=== PATIENT | female | born 1985 | race American Indian/Alaskan Native ===

== ENCOUNTER 2018-05-07 12:30 | Emergency (ER) | payer SELFPAY ==
[2018-05-07 14:32] LABS: Basophils % (Auto) 0.4 % (0.0-1.8); Eosinophils % (Auto) 0.5 % (0.0-4.3); Hematocrit 34.9 % (30.3-42.9); Hemoglobin 11.1 gm/dl (10.1-14.3); Mean Corpuscular HGB Conc 32 % (30-34); Monocytes # (Auto) 0.6 K/mm3 (0.0-0.8); Monocytes % (Auto) 8.6 % (0.0-7.3); Platelet Count 271 K/mm3 (140-440); Red Blood Count 5.25 M/mm3 (3.65-5.03); Red Cell Distribution Width 16.1 % (13.2-15.2)
[2018-05-07 14:33] LABS: Mean Corpuscular Hemoglobin 21 pg (28-32); Mean Corpuscular Volume 66 fl (79-97)
[2018-05-07 14:37] LABS: BUN/Creatinine Ratio 13; Blood Urea Nitrogen 9 mg/dL (7-17); Calcium 8.9 mg/dL (8.4-10.2); Hemolysis Index 3
[2018-05-07 15:11] LABS: Bilirubin,Urine NEG (Negative); Blood,Urine NEG (Negative); Color,Urine Yellow (Yellow); Protein,Urine <15 mg/dL mg/dL (Negative); Urobilinogen,Urine < 2.0 mg/dL (<2.0)
[2018-05-07] MEDS ORDERED: NACL 0.9% 1000 ML 1,000 ML IV ONE (16:35)
[2018-05-07] MEDS ORDERED: HumuLIN R IV ONE (17:08)
--- NOTE | 2018-05-07 17:23 | Emergency Department Report ---
HPI - General Chief Complaint: Hyperglycemia Time Seen by Provider: 05/07/18 16:34 - HPI HPI: Room 8 The patient is a 33-year-old female presenting with chief complaint of vaginal discharge and hyperglycemia. The patient states she's had a milky vaginal discharge for approximately one week in addition to vaginal itching and discomfort. The patient states this happens when she normally gets a yeast infection when her blood sugars are uncontrolled. Location: [See above] Duration: One week Quality: Vaginal discharge Severity: moderate Modifying factors: [see above] Context: [see above] Mode of transportation: [not driving] ED Past Medical Hx - Past Medical History Hx Hypertension: Yes Hx Diabetes: Yes - Surgical History Additional Surgical History: BREAST REDUCTION - Family History Family history: no significant - Social History Smoking Status: Never Smoker Substance Use Type: None - Medications Home Medications: Home Medications Medication Instructions Recorded Confirmed Last Taken Type Fluconazole [Diflucan TAB] 150 mg PO ONCE #1 tablet 05/07/18 Unknown Rx Metformin HCl [Glucophage] 1,000 mg PO BID #90 tablet 05/07/18 Unknown Rx Sulfamethoxazole/Trimethoprim 1 each PO BID #6 tablet 05/07/18 Unknown Rx [Bactrim DS TAB] ED Review of Systems ROS: Stated complaint: ECZEMA Other details as noted in HPI Constitutional: denies: fever Eyes: denies: eye pain ENT: denies: throat pain Respiratory: no symptoms reported Cardiovascular: denies: chest pain Gastrointestinal: denies: abdominal pain Genitourinary: frequency, discharge Musculoskeletal: denies: back pain Neurological: denies: headache Physical Exam - Physical Exam Vital Signs: Vital Signs 05/07/18 13:09 Temperature 98.7 F Pulse Rate 86 Respiratory 18 Rate Blood Pressure 160/99 O2 Sat by Pulse 100 Oximetry Physical Exam: GENERAL: The patient is well-developed well-nourished female lying on stretcher not appearing to be in acute distress. [] HEENT: Normocephalic. Atraumatic. Extraocular motions are intact. Patient has moist mucous membranes. NECK: Supple. Trachea midline CHEST/LUNGS: Clear to auscultation. There is no respiratory distress noted. HEART/CARDIOVASCULAR: Regular. There is no tachycardia. There is no gallop rub or murmur. ABDOMEN: Abdomen is soft, nontender. Patient has normal bowel sounds. There is no abdominal distention. SKIN: There is no rash. There is no edema. There is no diaphoresis. NEURO: The patient is awake, alert, and oriented. The patient is cooperative. The patient has normal speech MUSCULOSKELETAL: There is no evidence of acute injury. PELVIC: Scant dry white vaginal discharge present. ED Course Vital Signs 05/07/18 13:09 Temperature 98.7 F Pulse Rate 86 Respiratory 18 Rate Blood Pressure 160/99 O2 Sat by Pulse 100 Oximetry ED Medical Decision Making - Lab Data Result diagrams: 05/07/18 13:48 05/07/18 13:48 Laboratory Tests 05/07/18 05/07/18 05/07/18 13:05 13:48 13:48 WBC 7.0 RBC 5.25 H Hgb 11.1 Hct 34.9 MCV 66 L MCH 21 L MCHC 32 RDW 16.1 H Plt Count 271 Lymph % (Auto) 29.0 [place] % (Auto) 8.6 H Eos % (Auto) 0.5 Baso % (Auto) 0.4 Lymph # 2.0 [place] # 0.6 Eos # 0.0 Baso # 0.0 Seg Neutrophils % 61.5 Seg Neutrophils # 4.3 VBG pH Sodium 130 L Potassium 4.3 Chloride 93.1 L Carbon Dioxide 24 Anion Gap 17 BUN 9 Creatinine 0.7 Estimated GFR > 60 BUN/Creatinine Ratio 13 Glucose 513 H* POC Glucose 453 H Calcium 8.9 Urine Color Urine Turbidity Urine pH Ur Specific [place] Urine Protein Urine Glucose (UA) Urine Ketones Urine Blood Urine Nitrite Urine Bilirubin Urine Urobilinogen Ur Leukocyte Esterase Urine WBC (Auto) Urine RBC (Auto) U Epithel Cells (Auto) 05/07/18 05/07/18 05/07/18 13:48 14:33 17:05 WBC RBC Hgb Hct MCV MCH MCHC RDW Plt Count Lymph % (Auto) [place] % (Auto) Eos % (Auto) Baso % (Auto) Lymph # [place] # Eos # Baso # Seg Neutrophils % Seg Neutrophils # VBG pH 7.327 Sodium Potassium Chloride Carbon Dioxide Anion Gap BUN Creatinine Estimated GFR BUN/Creatinine Ratio Glucose POC Glucose 380 H Calcium Urine Color Yellow Urine Turbidity Hazy Urine pH 6.0 Ur Specific [place] 1.031 H Urine Protein <15 mg/dl Urine Glucose (UA) >=500 Urine Ketones Neg Urine Blood Neg Urine Nitrite Neg Urine Bilirubin Neg Urine Urobilinogen < 2.0 Ur Leukocyte Esterase Sm Urine WBC (Auto) 8.0 H Urine RBC (Auto) 4.0 U Epithel Cells (Auto) 3.0 Wet prep-less than 20% clue cells, no yeast or Trichomonas Laboratory Tests 05/07/18 05/07/18 05/07/18 13:05 13:48 13:48 WBC 7.0 RBC 5.25 H Hgb 11.1 Hct 34.9 MCV 66 L MCH 21 L MCHC 32 RDW 16.1 H Plt Count 271 Lymph % (Auto) 29.0 [place] % (Auto) 8.6 H Eos % (Auto) 0.5 Baso % (Auto) 0.4 Lymph # 2.0 [place] # 0.6 Eos # 0.0 Baso # 0.0 Seg Neutrophils % 61.5 Seg Neutrophils # 4.3 VBG pH Sodium 130 L Potassium 4.3 Chloride 93.1 L Carbon Dioxide 24 Anion Gap 17 BUN 9 Creatinine 0.7 Estimated GFR > 60 BUN/Creatinine Ratio 13 Glucose 513 H* POC Glucose 453 H Calcium 8.9 Urine Color Urine Turbidity Urine pH Ur Specific [place] Urine Protein Urine Glucose (UA) Urine Ketones Urine Blood Urine Nitrite Urine Bilirubin Urine Urobilinogen Ur Leukocyte Esterase Urine WBC (Auto) Urine RBC (Auto) U Epithel Cells (Auto) 05/07/18 05/07/18 05/07/18 13:48 14:33 17:05 WBC RBC Hgb Hct MCV MCH MCHC RDW Plt Count Lymph % (Auto) [place] % (Auto) Eos % (Auto) Baso % (Auto) Lymph # [place] # Eos # Baso # Seg Neutrophils % Seg Neutrophils # VBG pH 7.327 Sodium Potassium Chloride Carbon Dioxide Anion Gap BUN Creatinine Estimated GFR BUN/Creatinine Ratio Glucose POC Glucose 380 H Calcium Urine Color Yellow Urine Turbidity Hazy Urine pH 6.0 Ur Specific [place] 1.031 H Urine Protein <15 mg/dl Urine Glucose (UA) >=500 Urine Ketones Neg Urine Blood Neg Urine Nitrite Neg Urine Bilirubin Neg Urine Urobilinogen < 2.0 Ur Leukocyte Esterase Sm Urine WBC (Auto) 8.0 H Urine RBC (Auto) 4.0 U Epithel Cells (Auto) 3.0 05/07/18 18:27 WBC RBC Hgb Hct MCV MCH MCHC RDW Plt Count Lymph % (Auto) [place] % (Auto) Eos % (Auto) Baso % (Auto) Lymph # [place] # Eos # Baso # Seg Neutrophils % Seg Neutrophils # VBG pH Sodium Potassium Chloride Carbon Dioxide Anion Gap BUN Creatinine Estimated GFR BUN/Creatinine Ratio Glucose POC Glucose 252 H Calcium Urine Color Urine Turbidity Urine pH Ur Specific [place] Urine Protein Urine Glucose (UA) Urine Ketones Urine Blood Urine Nitrite Urine Bilirubin Urine Urobilinogen Ur Leukocyte Esterase Urine WBC (Auto) Urine RBC (Auto) U Epithel Cells (Auto) - Differential Diagnosis hyperglycemia, bacterial vaginosis, vaginal candidiasis Critical care attestation.: If time is entered above; I have spent that time in minutes in the direct care of this critically ill patient, excluding procedure time. ED Disposition Clinical Impression: Hyperglycemia, UTI (urinary tract infection), Vaginal discharge Disposition: TO HOME OR SELFCARE Is pt being admited?: No Does the pt Need Aspirin: No Condition: Stable Instructions: Vulvovaginal Candidiasis (ED) Additional Instructions: Return to the emergency department immediately should you develop worsening symptoms, fever, inability to tolerate food or liquid or any other concerns. Prescriptions: Fluconazole [Diflucan TAB] 150 mg PO ONCE #1 tablet Metformin HCl [Glucophage] 1,000 mg PO BID #90 tablet Sulfamethoxazole/Trimethoprim [Bactrim DS TAB] 1 each PO BID #6 tablet Referrals: PRIMARY CARE, [Primary Care Provider] - 3-5 Days Time of Disposition: 18:36
[2018-05-07] MEDS ORDERED: ZITHROMAX PO ONE (17:53)
[2018-05-07] MEDS ORDERED: XYLOCAINE 1% MPF 5 mL INFILTRATI ONE (17:54)
[2018-05-07] MEDS ORDERED: ROCEPHIN IM ONE (17:54)
[2018-05-07 18:57] VITALS: BP 176/99
== END 2018-05-07 18:58 | disposition home or self-care (01) ==
LOC: ED 12:30
DX: N39.0 Urinary tract infection, site not specified (principal); E11.65 Type 2 diabetes mellitus with hyperglycemia; I10 Essential (primary) hypertension
CPT/HCPCS: 36415; 80048; 81001; 82805; 82962; 85025; 87210; 87591; 96361; 96372; 96374; 99285; J0696; J7030; J1815

== ENCOUNTER 2018-05-22 09:15 | Emergency (ER) | payer SELFPAY ==
[2018-05-22 09:50] VITALS: BP 150/108
[2018-05-22] MEDS ORDERED: HumuLIN R IV ONE (09:57)
[2018-05-22] MEDS ORDERED: NACL 0.9% 1000 ML 1,000 ML IV ONE (09:57)
--- NOTE | 2018-05-22 09:58 | Emergency Department Report ---
ED General Adult HPI - General Chief complaint: Abdominal Pain Stated complaint: pain with urination Time Seen by Provider: 05/22/18 09:42 Source: patient, RN notes reviewed, old records reviewed Mode of arrival: Ambulatory Limitations: No Limitations - History of Present Illness Initial comments: This is a 33-year-old female who is not known to this provider previously. Patient has a history of diabetes and reports being noncompliant with her metformin for the past month or so. She does not know her hemoglobin A1c. She presents to the ER with a complaint of external vaginal irritation. She was seen for similar complaints on 05/07/2018, and was presumptively diagnosed with urinary tract infection, yeast infection, discharged with Diflucan, metformin, and Bactrim. She presents with recurrent complaint of external vaginal irritation. She denies dysuria, hematuria, intravaginal discomfort, headache, neck pain, chest pain, abdominal pain, shortness of breath. Her external vaginal irritation has been constant for the past day or so, is itchy in nature , does not radiate anywhere, does not have exacerbating or relieving factors. The patient's workup previously was negative for gonorrhea, chlamydia, bacterial vaginosis, or yeast. -: Gradual Location: genitals Radiation: other Severity scale (0 -10): 0 Quality: burning Consistency: constant Improves with: none Worsens with: none Associated Symptoms: denies other symptoms - Related Data Previous Rx's Medication Instructions Recorded Last Taken Type Fluconazole [Diflucan TAB] 150 mg PO ONCE #1 tablet 05/07/18 Unknown Rx Sulfamethoxazole/Trimethoprim 1 each PO BID #6 tablet 05/07/18 Unknown Rx [Bactrim DS TAB] Metformin HCl [Glucophage] 1,000 mg PO BID #90 tablet 05/22/18 Unknown Rx Allergies Allergy/AdvReac Type Severity Reaction Status Date / Time No Known Allergies Allergy Unverified 05/06/18 15:34 ED Review of Systems ROS: Stated complaint: pain with urination Other details as noted in HPI Comment: All other systems reviewed and negative ED Past Medical Hx - Past Medical History Previous Medical History?: Yes Hx Hypertension: Yes Hx Diabetes: Yes - Surgical History Past Surgical History?: Yes Additional Surgical History: BREAST REDUCTION - Social History Smoking Status: Never Smoker Substance Use Type: None - Medications Home Medications: Home Medications Medication Instructions Recorded Confirmed Last Taken Type Fluconazole [Diflucan TAB] 150 mg PO ONCE #1 tablet 05/07/18 Unknown Rx Sulfamethoxazole/Trimethoprim 1 each PO BID #6 tablet 05/07/18 Unknown Rx [Bactrim DS TAB] Metformin HCl [Glucophage] 1,000 mg PO BID #90 tablet 05/22/18 Unknown Rx ED Physical Exam - General Limitations: No Limitations General appearance: alert, in no apparent distress, obese - Head Head exam: Present: atraumatic, normocephalic - Eye Eye exam: Present: normal appearance, EOMI - ENT ENT exam: Present: normal exam, normal orophraynx, mucous membranes moist, normal external ear exam - Neck Neck exam: Present: normal inspection, full ROM. Absent: tenderness, meningismus - Respiratory Respiratory exam: Present: normal lung sounds bilaterally. Absent: respiratory distress - Cardiovascular Cardiovascular Exam: Present: regular rate, normal rhythm, normal heart sounds. Absent: bradycardia, tachycardia, irregular rhythm, systolic murmur, diastolic murmur, rubs, gallop - GI/Abdominal GI/Abdominal exam: Present: soft, normal bowel sounds. Absent: distended, tenderness, guarding, rebound, rigid, pulsatile mass - External exam: Present: erythema (there is minimal erythema on the intertriginous folds between the labia. There is no pus, streaking or crepitus. There is no discharge.). Absent: swelling, lesions, lacerations, ecchymosis Speculum exam: Present: normal speculum exam, vaginal bleeding (minimal vaginal bleeding) Bi-manual exam: Present: normal bi-manual exam, other (chaperoned by nurse Cecelia Stewart). Absent: cervical motion tendernes, adnexal tenderness, adnexal mass - Extremities Exam Extremities exam: Present: normal inspection, full ROM, normal capillary refill , other (2+ pulses noted in the bilateral upper, lower extremities. Compartments soft. No long bony tenderness. The pelvis is stable.). Absent: tenderness, pedal edema, joint swelling, calf tenderness - Back Exam Back exam: Present: normal inspection, full ROM. Absent: tenderness, CVA tenderness (R), paraspinal tenderness, vertebral tenderness - Neurological Exam Neurological exam: Present: alert, oriented X3, CN II-XII intact, normal gait, other (Extraocular movements intact. Tongue midline. No facial droop. Facial sensation intact to light touch in the V1, V2, V3 distribution bilaterally. 5 and 5 strength in 4 extremities.. Sensation is intact to light touch in 4 extremities.). Absent: motor sensory deficit - Psychiatric Psychiatric exam: Present: normal affect, normal mood - Skin Skin exam: Present: warm, dry, intact, normal color. Absent: rash ED Course Vital Signs 05/22/18 05/22/18 05/22/18 09:20 09:49 09:50 Temperature 98.5 F Pulse Rate 18 L 69 Respiratory 18 16 16 Rate Blood Pressure 173/118 Blood Pressure 150/108 [Right] O2 Sat by Pulse 100 100 Oximetry - Reevaluation(s) Reevaluation #1: 05/22/18 10:58 External gynecologic examination suggests skin irritation from friction. There is no evidence of maceration, cellulitis, abscess, or deep space infection. The initial documented pulse of 18 is reviewed and appreciated and most likely a false positive. Patient on my exam has not had any episodes of bradycardia. She is given a refill on her metformin, given instructions to go to [facility] which has 4 developed prescriptions, and is also given a prescription discount card. Reevaluation #2: 05/22/18 11:20 Gonorrhea, chlamydia swab from the other day was negative. Patient will be treated empirically with ceftriaxone, azithromycin, Flagyl given positive prep for trichomoniasis. Appropriate anticipatory guidance was provided. ED Medical Decision Making - Lab Data Result diagrams: 05/22/18 09:52 05/22/18 09:52 Vital Signs 05/22/18 05/22/18 05/22/18 09:20 09:49 09:50 Temperature 98.5 F Pulse Rate 18 L 69 Respiratory 18 16 16 Rate Blood Pressure 173/118 Blood Pressure 150/108 [Right] O2 Sat by Pulse 100 100 Oximetry Lab Results 05/22/18 05/22/18 05/22/18 Range/Units 09:24 09:52 09:52 WBC 5.8 (4.5-11.0) K/mm3 RBC 5.53 H (3.65-5.03) M/mm3 Hgb 11.5 (10.1-14.3) gm/dl Hct 37.5 (30.3-42.9) % MCV 68 L (79-97) fl MCH 21 L (28-32) pg MCHC 31 (30-34) % RDW 16.1 H (13.2-15.2) % Plt Count 288 (140-440) K/mm3 Lymph % (Auto) 31.9 (13.4-35.0) % [place] % (Auto) 9.1 H (0.0-7.3) % Eos % (Auto) 1.2 (0.0-4.3) % Baso % (Auto) 0.8 (0.0-1.8) % Lymph # 1.9 (1.2-5.4) K/mm3 [place] # 0.5 (0.0-0.8) K/mm3 Eos # 0.1 (0.0-0.4) K/mm3 Baso # 0.0 (0.0-0.1) K/mm3 Seg Neutrophils % 57.0 (40.0-70.0) % Seg Neutrophils # 3.3 (1.8-7.7) K/mm3 VBG pH (7.320-7.420) Sodium 134 L (137-145) mmol/L Potassium 4.2 (3.6-5.0) mmol/L Chloride 96.0 L (98-107) mmol/L Carbon Dioxide 24 (22-30) mmol/L Anion Gap 18 mmol/L BUN 8 (7-17) mg/dL Creatinine 0.6 L (0.7-1.2) mg/dL Estimated GFR > 60 ml/min BUN/Creatinine Ratio 13 % Glucose 556 H* (65-100) mg/dL POC Glucose 488 H (70-105) Hemoglobin A1c (4-6) % Calcium 9.2 (8.4-10.2) mg/dL HCG, Qual (Negative) 05/22/18 05/22/18 05/22/18 Range/Units 09:52 09:52 09:52 WBC (4.5-11.0) K/mm3 RBC (3.65-5.03) M/mm3 Hgb (10.1-14.3) gm/dl Hct (30.3-42.9) % MCV (79-97) fl MCH (28-32) pg MCHC (30-34) % RDW (13.2-15.2) % Plt Count (140-440) K/mm3 Lymph % (Auto) (13.4-35.0) % [place] % (Auto) (0.0-7.3) % Eos % (Auto) (0.0-4.3) % Baso % (Auto) (0.0-1.8) % Lymph # (1.2-5.4) K/mm3 [place] # (0.0-0.8) K/mm3 Eos # (0.0-0.4) K/mm3 Baso # (0.0-0.1) K/mm3 Seg Neutrophils % (40.0-70.0) % Seg Neutrophils # (1.8-7.7) K/mm3 VBG pH 7.344 (7.320-7.420) Sodium (137-145) mmol/L Potassium (3.6-5.0) mmol/L Chloride (98-107) mmol/L Carbon Dioxide (22-30) mmol/L Anion Gap mmol/L BUN (7-17) mg/dL Creatinine (0.7-1.2) mg/dL Estimated GFR ml/min BUN/Creatinine Ratio % Glucose (65-100) mg/dL POC Glucose (70-105) Hemoglobin A1c 14.7 H (4-6) % Calcium (8.4-10.2) mg/dL HCG, Qual Negative (Negative) - Medical Decision Making Differential diagnosis, including but not limited to: Vaginitis, zoster, skin avulsion, skin abrasion, urinary tract infection, hyperglycemia, medication noncompliance, Assessment and plan: 33-year-old female with a primary complaint of external vaginal irritation. She was seen for similar complaint on May 07. Gonorrhea , chlamydia swabs were negative, no trichomoniasis demonstrated, no evidence of bacterial vaginosis. She is incidentally found to be hyperglycemic. Her hemoglobin A1c is 14 which demonstrates very poor outpatient maintenance of her diabetes. Her elevated blood pressure is appreciated, and is not having acute symptoms related to her blood pressure. Please reference the [employer] clinical policy on blood pressure and is not acutely symptomatic. We will restart her metformin. We will perform an external gynecologic examination. She will need to follow up with a primary care doctor for her elevated blood pressure and hyperglycemia. Her laboratory studies showed hyperglycemia will which is an acute manifestation of her chronic poorly managed diabetes, not consistent with metabolic acidosis or diabetic ketoacidosis. She will be given IV fluids and insulin to improve her glucose. Critical care attestation.: If time is entered above; I have spent that time in minutes in the direct care of this critically ill patient, excluding procedure time. ED Disposition Clinical Impression: Hyperglycemia, Elevated blood pressure reading, Trichomoniasis Disposition: [id number] TO HOME OR SELFCARE Is pt being admited?: No Does the pt Need Aspirin: No Condition: Stable Instructions: Hypertension (ED), Diabetic Hyperglycemia (ED), Trichomoniasis ( ED) Additional Instructions: Laboratory studies indicated high blood sugar level, and hemoglobin A1c of 14. These studies indicate that patient is not controlling her diabetes well. Take the metformin as directed. Patient can look up online numerous pharmacies, such as [facility], [facility] for a list of $4/affordable prescriptions. In addition, the patient should go online, and reference the [employer]'s recommendations for appropriate diabetic diet. Long-term complications of high blood sugar include stroke, heart attack, disability, loss of vision, loss of quality of life. Patient was also noted to have an elevated blood pressure. This should be followed up by primary care doctor within the next 4-6 weeks. Elevated blood sugar reading should also be followed up within the next 4-6 weeks. Long-term complications of hypertension/ elevated blood pressure include stroke, heart attack, disability, paralysis, loss of quality of life. Cultures was sent today, and results are available in the next 3-5 days. Please have a primary care doctor contact the medical records department to obtain the culture results. Return to the ER right away with few pain, worsened pain, migration of pain, projectile vomiting, change in mental status, confusion, inability to tolerate liquid feeds. Do not consume alcohol for the next 48 hours. Wet prep demonstrated trichomoniasis which is typically an STD Cultures were sent today, and results will be available next 3-5 days. Please have your primary care doctor call the medical records department to obtain your culture results. Take the antibiotic therapy as directed. Take the nausea medication and pain medication as directed. I recommend outpatient testing for sexually transmitted diseases, including hepatitis, syphilis and HIV. I also recommend that you abstain from sexual activity until you have completed her antibiotic therapy, a physician states that it is safe for you to resume sexual activity, and any partners that you have been sexually active with have been tested/treated/evaluated for sexual transmitted diseases. Please follow-up with physician within 3-5 days. I recommend that you return to the ER right away with worsening pain, migration of pain, intractable nausea/vomiting, inability tolerate liquid feeds. Prescriptions: Metformin HCl [Glucophage] 1,000 mg PO BID #90 tablet Referrals: PRIMARY CARE, [Primary Care Provider] - 3-5 Days [facility] [Provider Group] - 3-5 Days [facility] [Provider Group] - 3-5 Days
[2018-05-22 10:15] LABS: Basophils % (Auto) 0.8 % (0.0-1.8); Eosinophils # (Auto) 0.1 K/mm3 (0.0-0.4); Eosinophils % (Auto) 1.2 % (0.0-4.3); Hematocrit 37.5 % (30.3-42.9); Hemoglobin 11.5 gm/dl (10.1-14.3); Lymphocytes # (Auto) 1.9 K/mm3 (1.2-5.4); Lymphocytes % (Auto) 31.9 % (13.4-35.0); Mean Corpuscular HGB Conc 31 % (30-34); Mean Corpuscular Hemoglobin 21 pg (28-32); Mean Corpuscular Volume 68 fl (79-97); Monocytes # (Auto) 0.5 K/mm3 (0.0-0.8); Monocytes % (Auto) 9.1 % (0.0-7.3); Platelet Count 288 K/mm3 (140-440); Red Blood Count 5.53 M/mm3 (3.65-5.03); Red Cell Distribution Width 16.1 % (13.2-15.2)
[2018-05-22 10:17] LABS: BUN/Creatinine Ratio 13; Blood Urea Nitrogen 8 mg/dL (7-17); Calcium 9.2 mg/dL (8.4-10.2); Hemolysis Index 8
[2018-05-22 10:56] LABS: Bilirubin,Urine NEG (Negative); Blood,Urine NEG (Negative); Color,Urine Straw (Yellow); Protein,Urine <15 mg/dL mg/dL (Negative); RBC,Urine < 1.0 /HPF (0.0-6.0); Urobilinogen,Urine < 2.0 mg/dL (<2.0)
[2018-05-22] MEDS ORDERED: FLAGYL PO STA (11:19)
[2018-05-22] MEDS ORDERED: ROCEPHIN IV ONE (11:20)
[2018-05-22] MEDS ORDERED: ZITHROMAX PO ONE (11:20)
== END 2018-05-22 11:54 | disposition home or self-care (01) ==
LOC: ED 09:15
DX: A59.9 Trichomoniasis, unspecified (principal); E11.65 Type 2 diabetes mellitus with hyperglycemia; I10 Essential (primary) hypertension; Z79.84 Long term (current) use of oral hypoglycemic drugs
CPT/HCPCS: 36415; 80048; 81001; 82805; 82962; 83036; 84703; 85025; 87210; 96361; 96374; 96375; 99284; J0696; J7030; J1815